=== PATIENT | male | born 1980 | race Caucasian/White ===

== ENCOUNTER 2020-11-21 00:05 | Inpatient (IN) ==
[2020-11-21] MEDS ORDERED: Naloxone 0.4 MG/ML INJ IVP PRN ×2 (03:24→14:21)
[2020-11-21] MEDS ORDERED: Artificial Tears SOLN 15 ML BOTTLE BOTH EYES PRN ×2 (03:27→14:21)
[2020-11-21] MEDS: Midazolam HCl 50 MG/100 ML IV.SOLN IVC SCH ×2 (03:30→19:10)
[2020-11-21] MEDS: FentaNYL (PF) 1,000 MCG/100 ML IV.SOLN IVC SCH ×3 (03:30→16:09)
[2020-11-21 03:49] LABS: ABG Base Excess -11 mEq/L (-2 to 3); ABG HCO3 20 mEq/L (21-27); ABG Oxygen Saturation 87 % (95-98); ABG PCO2 67 mmHg (35-45); ABG PH 7.08 pH Units (7.32-7.45); ABG PO2 75 mmHg (85-104); ABG TCO2 22 mEq/L (20-26); Blood Gas VT 450 cc
[2020-11-21] MEDS ORDERED: *HR* Dextrose 50 % in Water (Vial) 50 ML VIAL ONE (03:49)
[2020-11-21] MEDS ORDERED: *HR* Dextrose 50 % in Water (Vial) 50 ML VIAL IVP ONE (04:00)
[2020-11-21 04:33] LABS: Hematocrit 32.2 % (37.5-50.1); Mean Corpuscular Volume 85.6 fL (83.0-100.0); Nucleated Red Blood Cells 0.4 /100 WBC (0); Red Blood Count 3.76 M/mcL (4.19-5.50)
[2020-11-21 04:34] LABS: Hemoglobin 11.1 g/dL (12.9-16.9); Mean Corpuscular HGB Conc 34.5 g/dL (31.6-35.5); Mean Corpuscular Hemoglobin 29.5 pg (28.0-33.3); Platelet Count 117 K/mcL (140-400); Red Cell Distribution Width 13.7 % (11.5-14.5)
[2020-11-21 04:38] LABS: White Blood Count 44.8 K/mcL (4.3-11.1)
[2020-11-21 04:41] LABS: VBG Ionized Calcium 0.83 mmol/L (1.15-1.35)
[2020-11-21 04:51] LABS: Albumin 2.1 g/dL (3.5-5.7); Albumin/Globulin Ratio 0.7 (1.1-2.2); Bilirubin,Total 1.8 mg/dL (0.3-1.0); Calcium 6.6 mg/dL (8.6-10.3); Globulin 2.9 g/dL (2.4-3.5); Magnesium 2.1 mg/dL (1.6-2.6); Phosphorous 11.1 mg/dL (2.7-4.5); Potassium 4.3 mEq/L (3.5-5.1)
[2020-11-21 04:59] LABS: Lymphocytes # 2.7 K/mcL (0.6-4.6); Monocytes # 0.9 K/mcL (0.0-1.3); Neutrophils # 41.2 K/mcL (1.6-8.9)
[2020-11-21 05:00] LABS: Large Platelets Present (Not Present); Platelet Estimate Slight Decrease (Normal); Poikilocytosis 1+ (Not Present)
[2020-11-21 05:05] LABS: ABG Base Excess -7 mEq/L (-2 to 3); ABG HCO3 23 mEq/L (21-27); ABG Oxygen Saturation 85 % (95-98); ABG PCO2 69 mmHg (35-45); ABG PH 7.13 pH Units (7.32-7.45); ABG PO2 66 mmHg (85-104); ABG TCO2 25 mEq/L (20-26); Blood Gas Modality ASSIST CONTROL; Blood Gas VT 450 cc
[2020-11-21] MEDS ORDERED: Perflutren Lipid Microsphere 1.3 ML in 0.9 % Sodium Chloride 8.7 ML IVP PRN ×2 (05:38→14:21)
[2020-11-21] MEDS: 0.9 % Sodium Chloride 1,000 ML IVC SCH ×2 (05:44→12:32)
[2020-11-21] MEDS: Calcium Gluconate 1gm/50mL 1 GM/50 ML BAG IVPB SCH ×2 (05:45→06:14)
[2020-11-21 05:49] LABS: ABG Base Excess -7 mEq/L (-2 to 3); ABG HCO3 23 mEq/L (21-27); ABG Oxygen Saturation 83 % (95-98); ABG PCO2 67 mmHg (35-45); ABG PH 7.14 pH Units (7.32-7.45); ABG PO2 63 mmHg (85-104); ABG TCO2 25 mEq/L (20-26); Blood Gas VT 400 cc
[2020-11-21] MEDS ORDERED: Cisatracurium 200 MG in 0.9 % Sodium Chloride 180 ML IVC SCH (06:00)
[2020-11-21] MEDS ORDERED: *HR* Heparin 5,000 UNIT/ML VIAL SQ SCH (06:00)
[2020-11-21] MEDS: Artificial Tears SOLN 15 ML BOTTLE BOTH EYES SCH ×5 (06:01→21:40)
[2020-11-21] MEDS: Ipratropium/Albuterol Neb 3 ML IH SCH ×5 (07:54→23:13)
[2020-11-21 08:43] LABS: C-Reactive Protein > 300 mg/L (Less than 10); Creatine Kinase 302 Units/L (30-223)
[2020-11-21 08:43] LABS: Complement C3 85 mg/dL (87-200)
[2020-11-21 08:56] LABS: Creatinine,Urine 84 mg/dL; Sodium, Urine 24.1 mEq/L
[2020-11-21] MEDS: Norepinephrine 4 MG/254 ML IV.SOLN IVC SCH ×4 (08:57→21:54)
[2020-11-21] MEDS ORDERED: levoFLOXacin 750 MG/150 ML 750 MG/150 ML BAG IVPB SCH (09:00)
[2020-11-21] MEDS ORDERED: Pantoprazole 40 MG VIAL IVP SCH (09:00)
[2020-11-21] MEDS ORDERED: Chlorhexidine Rinse 15 ML MOUTHWASH MM SCH (09:00)
[2020-11-21] MEDS ORDERED: Micafungin 100 MG in 0.9 % Sodium Chloride Mini Bag 100 ML IVPB SCH (09:15)
[2020-11-21 09:43] LABS: Adenovirus Not Detected (Not Detect); Bordetella Pertussis Not Detected (Not Detect); Chlamydophila pneumoniae Not Detected (Not Detect); Coronavirus 229E Not Detected (Not Detect); Coronavirus HKU1 Not Detected (Not Detect); Coronavirus NL63 Not Detected (Not Detect); Coronavirus OC43 Not Detected (Not Detect); Human Metapneumovirus Not Detected (Not Detect); Human Rhinovirus/Enterovirus Not Detected (Not Detect); Influenza A Subtype 2009 H1 Not Detected (Not Detect); Influenza B Not Detected (Not Detect); Mycoplasma pneumoniae Not Detected (Not Detect); Parainfluenza Virus 1 Not Detected (Not Detect); Parainfluenza Virus 2 Not Detected (Not Detect); Parainfluenza Virus 3 Not Detected (Not Detect); Parainfluenza Virus 4 Not Detected (Not Detect); Respiratory Syncytial Virus Not Detected (Not Detect); SARS-CoV-2 Not Detected (Not Detect)
[2020-11-21] MEDS ORDERED: Piperacillin/Tazobactam 3.375 GM in 0.9 % Sodium Chloride Mini Bag 100 ML IVPB SCH (10:00)
[2020-11-21 10:09] LABS: Bilirubin,Urine Small (Negative); Blood,Urine Moderate (Negative); Clarity,Urine Turbid (Clear); Color,Urine Dark-Yellow (Yellow); Glucose,Urine (UA) Normal (Normal); Ketones,Urine Negative (Negative); Leukocyte Esterase,Urine Negative (Negative); Nitrite,Urine Negative (Negative); Protein,Urine 70 mg/dL (Neg-Trace); RBC,Urine 0-3 per hpf (0-3); Specific Gravity,Urine 1.019 (1.010-1.025); WBC,Urine 0-3 per hpf (0-3)
[2020-11-21] MEDS ORDERED: 0.9 % Sodium Chloride 1,000 ML ONE (10:10)
[2020-11-21 10:15] LABS: Creatinine,Urine 89 mg/dL; Microalbum/Creatinine Ratio,Ur 248 mcg/mg (Less than 30); Microalbumin,Urine 221 mg/L
[2020-11-21 10:28] LABS: Calcium 6.7 mg/dL (8.6-10.3); Potassium 4.8 mEq/L (3.5-5.1)
[2020-11-21] MEDS ORDERED: Dexamethasone 4 MG/ML VIAL ONE (10:28)
[2020-11-21] MEDS ORDERED: Ondansetron 4 MG/2 ML VIAL ONE (10:28)
[2020-11-21] MEDS ORDERED: Lidocaine -MPF 2% 2 ML VIAL ONE (10:28)
[2020-11-21] MEDS ORDERED: Lidocaine -MPF 4% 5 ML AMPUL ONE (10:28)
[2020-11-21] MEDS ORDERED: *HR* FentaNYL (PF) 100 MCG/2 ML VIAL ONE (10:28)
[2020-11-21] MEDS ORDERED: *HR* Rocuronium Bromide 50 MG/5 ML VIAL ONE (10:28)
[2020-11-21] MEDS ORDERED: *HR* Midazolam HCl 2 MG/2 ML VIAL ONE (10:28)
[2020-11-21] MEDS ORDERED: *HR* Propofol 200 MG/20 ML VIAL IVP ONE (10:29)
[2020-11-21] MEDS ORDERED: *HR* Heparin 5,000 UNIT/ML VIAL IVP PRN ×2 (10:34→14:21)
[2020-11-21] MEDS ORDERED: PrismaSATE BGK 4/2.5 5,000 ML CRRT SCH ×2 (10:45)
[2020-11-21] MEDS ORDERED: 0.9 % Sodium Chloride 1,000 ML PRIME SCH ×2 (10:45→14:21)
[2020-11-21 11:02] LABS: ABG Base Excess -5 mEq/L (-2 to 3); ABG HCO3 22 mEq/L (21-27); ABG Oxygen Saturation 97 % (95-98); ABG PCO2 51 mmHg (35-45); ABG PH 7.25 pH Units (7.32-7.45); ABG PO2 108 mmHg (85-104); ABG TCO2 24 mEq/L (20-26); Blood Gas Modality ASSIST CONTROL; Blood Gas VT 450 cc
[2020-11-21] MEDS ORDERED: *HR* Cisatracurium 10 MG/5 ML VIAL IV ONE (11:05)
[2020-11-21] MEDS ORDERED: *HR* Vasopressin 20 UNIT/ML VIAL ONE (11:05)
[2020-11-21] MEDS ORDERED: Lacri-Lube 3.5 GM TUBE ONE ×2 (11:39→12:34)
[2020-11-21 13:14] LABS: ABG Base Excess -6 mEq/L (-2 to 3); ABG Chloride 98 mEq/L (98-107); ABG Glucose 97 mg/dL (60-95); ABG HCO3 20 mEq/L (21-27); ABG Ionized Calcium 0.76 mmol/L (1.15-1.35); ABG Oxygen Saturation 98 % (95-98); ABG PCO2 39 mmHg (35-45); ABG PH 7.31 pH Units (7.32-7.45); ABG PO2 105 mmHg (85-104); ABG TCO2 21 mEq/L (20-26)
[2020-11-21] MEDS ORDERED: Calcium Chloride 2,000 MG in 0.9 % Sodium Chloride 100 ML IVPB ONE ×2 (14:00→14:21)
[2020-11-21 14:02] LABS: Amphetamine Screen,Urine Positive ng/mL (Cutoff=1000); Barbiturate Screen,Urine Negative ng/mL (Cutoff=200); Benzodiazepines Screen,Urine Positive ng/mL (Cutoff=200); Cannabinoid Screen,Urine Negative ng/mL (Cutoff = 50); Cocaine Screen,Urine Negative ng/mL (Cutoff= 300); Opiate Screen,Urine Positive ng/mL (Cutoff=300); Phencyclidine Screen,Urine Negative ng/mL (Cutoff=25)
[2020-11-21] MEDS ORDERED: Heparin 1,000 UNITS/500 mL 500 ML ONE (14:16)
[2020-11-21] MEDS ORDERED: Lidocaine/EPI 1:100k 1% 50 ML VIAL ONE (14:16)
[2020-11-21] MEDS ORDERED: FentaNYL (PF) 1,000 MCG/100 ML IV.SOLN IVC SCH (14:21)
[2020-11-21] MEDS ORDERED: 0.9 % Sodium Chloride 1,000 ML IVC SCH (14:21)
[2020-11-21] MEDS ORDERED: HEPARIN 1000 UNIT/500 ML ONE (14:40)
[2020-11-21 15:48] LABS: Eosinophils % 0.1 %; Hematocrit 25.4 % (37.5-50.1); Nucleated Red Blood Cells 0.4 /100 WBC (0)
[2020-11-21 15:50] LABS: Hemoglobin 8.7 g/dL (12.9-16.9); Immature Granulocytes % 7.5 % (0-4); Lymphocytes # 2.9 K/mcL (0.6-4.6); Lymphocytes % 6.3 %; Mean Corpuscular HGB Conc 34.3 g/dL (31.6-35.5); Mean Corpuscular Hemoglobin 29.5 pg (28.0-33.3); Mean Corpuscular Volume 86.1 fL (83.0-100.0); Monocytes # 1.1 K/mcL (0.0-1.3); Monocytes % 2.5 %; Neutrophils # 37.8 K/mcL (1.6-8.9); Platelet Count 104 K/mcL (140-400); Red Blood Count 2.95 M/mcL (4.19-5.50); Red Cell Distribution Width 14.2 % (11.5-14.5); Segmented Neutrophils % 83.6 %
[2020-11-21 15:51] LABS: Eosinophils # 0.1 K/mcL (0.0-0.6)
[2020-11-21 16:03] LABS: Calcium 7.5 mg/dL (8.6-10.3); Potassium 5.7 mEq/L (3.5-5.1)
[2020-11-21] MEDS: PrismaSATE BGK 4/2.5 5,000 ML CRRT SCH ×4 (16:44→20:44)
[2020-11-21] MEDS: Piperacillin/Tazobactam 3.375 GM in 0.9 % Sodium Chloride Mini Bag 100 ML IVPB SCH (17:04)
[2020-11-21 17:18] LABS: Hepatitis B Surface Antigen Nonreactive (Nonreactive)
[2020-11-21 17:48] LABS: HIV-1&2 Antibody & p24 Ag Nonreactive (Nonreactive)
[2020-11-21 17:49] LABS: Hepatitis B Core IgM Nonreactive (Nonreactive)
[2020-11-21 17:51] LABS: Hepatitis A Antibody IgM Nonreactive (Nonreactive)
[2020-11-21] MEDS ORDERED: DAPTOmycin 500 MG in 0.9 % Sodium Chloride 100 ML IVPB SCH (18:00)
[2020-11-21] MEDS ORDERED: Vancomycin 1,250 MG/262.5 ML IV.SOLN IVPB SCH (18:00)
[2020-11-21 19:06] LABS: Hepatitis C Virus Antibody Reactive (Nonreactive)
[2020-11-21 19:07] LABS: Calcium 6.4 mg/dL (8.6-10.3); Potassium 5.6 mEq/L (3.5-5.1)
[2020-11-21 19:22] LABS: Troponin I 0.2 ng/mL (< 0.04)
[2020-11-21] MEDS ORDERED: 0.9 % Sodium Chloride 250 ML ONE (19:38)
[2020-11-21] MEDS: Cisatracurium 200 MG in 0.9 % Sodium Chloride 180 ML IVC SCH (20:40)
[2020-11-21] MEDS: Chlorhexidine Rinse 15 ML MOUTHWASH MM SCH (20:53)
[2020-11-21] MEDS: *HR* Heparin 5,000 UNIT/ML VIAL SQ SCH (20:53)
[2020-11-21 21:26] LABS: White Blood Count 45.2 K/mcL (4.3-11.1)
[2020-11-21] MEDS ORDERED: 0.9 % Sodium Chloride 1,000 ML IV ONE (22:28)
[2020-11-22] MEDS: Artificial Tears SOLN 15 ML BOTTLE BOTH EYES SCH ×7 (00:29→23:17)
[2020-11-22] MEDS: Piperacillin/Tazobactam 3.375 GM in 0.9 % Sodium Chloride Mini Bag 100 ML IVPB SCH ×4 (00:29→23:20)
[2020-11-22] MEDS: PrismaSATE BGK 4/2.5 5,000 ML CRRT SCH ×12 (00:44→21:05)
[2020-11-22] MEDS: Norepinephrine 4 MG/254 ML IV.SOLN IVC SCH ×5 (01:23→19:00)
[2020-11-22] MEDS: FentaNYL (PF) 2,500 MCG/50 ML IV.SOLN IVC SCH ×2 (03:00→12:08)
[2020-11-22] MEDS ORDERED: *HR* Dextrose 50 % in Water (Vial) 50 ML VIAL ONE (03:47)
[2020-11-22] MEDS: Ipratropium/Albuterol Neb 3 ML IH SCH ×6 (03:49→23:46)
[2020-11-22 04:08] LABS: ABG Ionized Calcium 0.73 mmol/L (1.15-1.35)
[2020-11-22 04:15] LABS: Hematocrit 23.2 % (37.5-50.1); Hemoglobin 7.7 g/dL (12.9-16.9); Mean Corpuscular HGB Conc 33.2 g/dL (31.6-35.5); Mean Corpuscular Hemoglobin 29.1 pg (28.0-33.3); Mean Corpuscular Volume 87.5 fL (83.0-100.0); Mean Platelet Volume 11.4 fL (9.4-12.4); Nucleated Red Blood Cells 0.7 /100 WBC (0); Red Blood Count 2.65 M/mcL (4.19-5.50); Red Cell Distribution Width 14.6 % (11.5-14.5)
[2020-11-22 04:17] LABS: INR 2.3
[2020-11-22 04:20] LABS: Activated Partial Thrombo Time 36.1 Seconds (26.0-36.0)
[2020-11-22 04:34] LABS: Calcium 4.9 mg/dL (8.6-10.3); Uric Acid 6.8 mg/dL (2.3-7.6)
[2020-11-22 04:40] LABS: Platelet Count 68 K/mcL (140-400)
[2020-11-22 04:42] LABS: White Blood Count 33.6 K/mcL (4.3-11.1)
[2020-11-22 04:44] LABS: Anisocytosis 1+ (Not Present); Lymphocytes # 3.4 K/mcL (0.6-4.6); Neutrophils # 29.6 K/mcL (1.6-8.9)
[2020-11-22 04:45] LABS: Platelet Estimate Decreased (Normal); Reactive Lymphocytes Present (Not Present); Toxic Granulation Present (Not Present); Toxic Vacuolation Present (Not Present)
[2020-11-22 04:59] LABS: ABG Base Excess -14 mEq/L (-2 to 3); ABG HCO3 15 mEq/L (21-27); ABG Oxygen Saturation 89 % (95-98); ABG PCO2 42 mmHg (35-45); ABG PH 7.15 pH Units (7.32-7.45); ABG PO2 72 mmHg (85-104); ABG TCO2 16 mEq/L (20-26); Blood Gas VT 450 cc
[2020-11-22 05:04] LABS: Albumin 1.7 g/dL (3.5-5.7); Albumin/Globulin Ratio 0.7 (1.1-2.2); Bilirubin,Direct 2.3 mg/dL (0.0-0.2); Bilirubin,Indirect 0.6 mg/dL (0.0-1.0); Bilirubin,Total 2.9 mg/dL (0.3-1.0); Globulin 2.5 g/dL (2.4-3.5); Magnesium 2.4 mg/dL (1.6-2.6); Phosphorous 7.9 mg/dL (2.7-4.5); Total Protein 4.2 g/dL (6.4-8.9)
[2020-11-22] MEDS: *HR* Heparin 5,000 UNIT/ML VIAL SQ SCH ×3 (05:29→20:13)
[2020-11-22] MEDS ORDERED: Sodium Bicarbonate 150 MEQ in D5% in Water 1,000 ML IVC SCH ×2 (05:30)
[2020-11-22] MEDS ORDERED: *HR* Dextrose 50 % in Water (Vial) 50 ML VIAL IVP ONE (05:45)
[2020-11-22] MEDS ORDERED: Calcium Gluconate 1gm/50mL 1 GM/50 ML BAG IVPB SCH (06:00)
[2020-11-22] MEDS: Midazolam HCl 50 MG/100 ML IV.SOLN IVC SCH ×2 (06:00→17:01)
[2020-11-22] MEDS ORDERED: 0.9 % Sodium Chloride 1,000 ML IVC ONE (06:28)
[2020-11-22] MEDS: D5 IVPB SCH ×2 (06:44→17:30)
[2020-11-22] MEDS: CALCIUM CHLORIDE IVPB SCH ×2 (06:44→17:30)
[2020-11-22] MEDS: WATER IVPB SCH ×2 (06:44→17:30)
[2020-11-22] MEDS ORDERED: D10% in Water 500 ML ONE (06:59)
[2020-11-22] MEDS: D10% in Water 500 ML IVC SCH ×2 (07:00→17:17)
[2020-11-22] MEDS ORDERED: 0.9 % Sodium Chloride 500 ML ONE (07:38)
[2020-11-22] MEDS: Phenylephrine 10 MG in 0.9 % Sodium Chloride 250 ML IVC SCH ×2 (08:06→18:00)
[2020-11-22] MEDS: Chlorhexidine Rinse 15 ML MOUTHWASH MM SCH ×2 (08:07→20:20)
[2020-11-22] MEDS: Pantoprazole 40 MG VIAL IVP SCH (08:07)
[2020-11-22] MEDS ORDERED: levoFLOXacin 500 MG/100 ML 500 MG/100 ML BAG IVPB SCH (09:00)
[2020-11-22] MEDS ORDERED: Micafungin 100 MG in 0.9 % Sodium Chloride Mini Bag 100 ML IVPB SCH (09:00)
[2020-11-22] MEDS ORDERED: Vancomycin 1,500 MG/265 ML IV.SOLN IVPB ONE (11:00)
[2020-11-22 11:05] LABS: Acinetobacter baumannii by PCR Not Detected (Not Detect); Candida albicans by PCR Not Detected (Not Detect); Candida glabrata by PCR Not Detected (Not Detect); Candida krusei by PCR Not Detected (Not Detect); Candida parapsilosis by PCR Not Detected (Not Detect); Candida tropicalis by PCR Not Detected (Not Detect); Enterobacter cloacae Cmplx PCR Not Detected (Not Detect); Enterobacteriaceae by PCR Not Detected (Not Detect); Enterococcus by PCR Not Detected (Not Detect); Escherichia coli by PCR Not Detected (Not Detect); Klebsiella oxytoca by PCR Not Detected (Not Detect); Klebsiella pneumoniae by PCR Not Detected (Not Detect); Proteus by PCR Not Detected (Not Detect); Pseudomonas aeruginosa by PCR Not Detected (Not Detect); Serratia marcescens by PCR Not Detected (Not Detect); Staphylococcus aureus by PCR DETECTED (Not Detect); Streptococcus agalactiae(B)PCR Not Detected (Not Detect); Streptococcus by PCR Not Detected (Not Detect); Streptococcus pneumoniae PCR Not Detected (Not Detect); Streptococcus pyogenes (A) PCR Not Detected (Not Detect); mecA Methicillin-Resist Gene DETECTED (Not Detect)
[2020-11-22 11:36] LABS: ABG Base Excess -19 mEq/L (-2 to 3); ABG HCO3 12 mEq/L (21-27); ABG Oxygen Saturation 82 % (95-98); ABG PCO2 49 mmHg (35-45); ABG PH 6.98 pH Units (7.32-7.45); ABG PO2 70 mmHg (85-104); ABG TCO2 13 mEq/L (20-26); Blood Gas Modality ASSIST CONTROL; Blood Gas VT 450 cc
[2020-11-22] MEDS: Cisatracurium 200 MG in 0.9 % Sodium Chloride 180 ML IVC SCH (12:09)
[2020-11-22 12:20] LABS: VBG Ionized Calcium 0.92 mmol/L (1.15-1.35)
[2020-11-22] MEDS: Calcium Gluconate 1gm/50mL 1 GM/50 ML BAG IVPB PRN ×2 (13:11→21:18)
[2020-11-22] MEDS ORDERED: *HR* Atropine Sulfate 1 MG/10 ML SYRINGE IV ONE (13:27)
[2020-11-22] MEDS ORDERED: *HR* Dextrose 50 % in Water (Syg) 50 ML SYRINGE IVP ONE (13:27)
[2020-11-22] MEDS: Sodium Bicarbonate 150 MEQ in D5% in Water 1,000 ML IVC SCH ×2 (13:51→19:48)
[2020-11-22 15:37] LABS: INR 3.1; Prothrombin Time 34.4 Seconds (9.4-12.1)
[2020-11-22 15:40] LABS: Mean Platelet Volume 12.2 fL (9.4-12.4); Nucleated Red Blood Cells 1.9 /100 WBC (0)
[2020-11-22 15:41] LABS: Hematocrit 26.8 % (37.5-50.1); Hemoglobin 8.7 g/dL (12.9-16.9); Immature Platelets 13.6 % (1.1-6.1); Mean Corpuscular HGB Conc 32.5 g/dL (31.6-35.5); Mean Corpuscular Hemoglobin 29.1 pg (28.0-33.3); Mean Corpuscular Volume 89.6 fL (83.0-100.0); Red Blood Count 2.99 M/mcL (4.19-5.50); Red Cell Distribution Width 15.3 % (11.5-14.5)
[2020-11-22 15:42] LABS: Platelet Count 58 K/mcL (140-400)
[2020-11-22 15:46] LABS: White Blood Count 40.3 K/mcL (4.3-11.1)
[2020-11-22 15:50] LABS: Calcium 7.6 mg/dL (8.6-10.3); Potassium 5.9 mEq/L (3.5-5.1)
[2020-11-22 15:57] LABS: Anisocytosis 1+ (Not Present); Lymphocytes # 3.2 K/mcL (0.6-4.6); Monocytes # 3.2 K/mcL (0.0-1.3); Neutrophils # 31.4 K/mcL (1.6-8.9); Platelet Estimate Decreased (Normal); Poikilocytosis 1+ (Not Present)
[2020-11-22 16:21] LABS: VBG Ionized Calcium 0.99 mmol/L (1.15-1.35)
[2020-11-22 16:22] LABS: ABG Base Excess -13 mEq/L (-2 to 3); ABG HCO3 15 mEq/L (21-27); ABG Oxygen Saturation 99 % (95-98); ABG PCO2 40 mmHg (35-45); ABG PH 7.18 pH Units (7.32-7.45); ABG PO2 165 mmHg (85-104); ABG TCO2 16 mEq/L (20-26); Blood Gas Modality ASSIST CONTROL; Blood Gas VT 550 cc
[2020-11-22 20:37] LABS: VBG Ionized Calcium 1.02 mmol/L (1.15-1.35)
[2020-11-22] MEDS: Norepinephrine 8 MG in 0.9 % Sodium Chloride 250 ML IVC SCH (22:04)
[2020-11-22 22:25] LABS: ABG Base Excess -8 mEq/L (-2 to 3); ABG HCO3 18 mEq/L (21-27); ABG Oxygen Saturation 94 % (95-98); ABG PCO2 41 mmHg (35-45); ABG PH 7.27 pH Units (7.32-7.45); ABG PO2 80 mmHg (85-104); ABG TCO2 20 mEq/L (20-26); Blood Gas VT 550 cc
[2020-11-23] MEDS: PrismaSATE BGK 4/2.5 5,000 ML CRRT SCH ×12 (01:10→23:36)
[2020-11-23] MEDS: Sodium Bicarbonate 150 MEQ in D5% in Water 1,000 ML IVC SCH ×6 (01:23→23:20)
[2020-11-23] MEDS: Cisatracurium 200 MG in 0.9 % Sodium Chloride 180 ML IVC SCH ×2 (02:05→14:28)
[2020-11-23] MEDS: FentaNYL (PF) 2,500 MCG/50 ML IV.SOLN IVC SCH ×2 (02:08→15:41)
[2020-11-23] MEDS: Phenylephrine 10 MG in 0.9 % Sodium Chloride 250 ML IVC SCH (02:31)
[2020-11-23] MEDS: Midazolam HCl 50 MG/100 ML IV.SOLN IVC SCH ×2 (03:04→14:25)
[2020-11-23] MEDS: Norepinephrine 8 MG in 0.9 % Sodium Chloride 250 ML IVC SCH ×5 (03:04→22:04)
[2020-11-23 03:16] LABS: ABG Ionized Calcium 1.08 mmol/L (1.15-1.35)
[2020-11-23 03:16] LABS: Hemoglobin 8.8 g/dL (12.9-16.9)
[2020-11-23 03:18] LABS: Hematocrit 26.7 % (37.5-50.1); Immature Platelets 18.5 % (1.1-6.1); Mean Corpuscular Hemoglobin 28.9 pg (28.0-33.3); Mean Corpuscular Volume 87.5 fL (83.0-100.0); Mean Platelet Volume 12.9 fL (9.4-12.4); Nucleated Red Blood Cells 3.4 /100 WBC (0); Platelet Count 43 K/mcL (140-400); Red Blood Count 3.05 M/mcL (4.19-5.50); Red Cell Distribution Width 15.9 % (11.5-14.5)
[2020-11-23 03:21] LABS: White Blood Count 38.5 K/mcL (4.3-11.1)
[2020-11-23 03:28] LABS: INR 3.4; Prothrombin Time 37.9 Seconds (9.4-12.1)
[2020-11-23 03:36] LABS: Hypochromasia Present (Not Present); Lymphocytes # 3.1 K/mcL (0.6-4.6); Monocytes # 2.3 K/mcL (0.0-1.3); Platelet Estimate Decreased (Normal); Reactive Lymphocytes Present (Not Present)
[2020-11-23 03:37] LABS: Toxic Granulation Present (Not Present); Toxic Vacuolation Present (Not Present)
[2020-11-23] MEDS: WATER IVPB SCH ×3 (03:38→23:22)
[2020-11-23] MEDS: D5 IVPB SCH ×3 (03:38→23:22)
[2020-11-23] MEDS: Artificial Tears SOLN 15 ML BOTTLE BOTH EYES SCH ×6 (03:38→23:20)
[2020-11-23] MEDS: CALCIUM CHLORIDE IVPB SCH ×3 (03:38→23:22)
[2020-11-23 03:43] LABS: Alanine Aminotransferase 2017 Units/L (7-52); Albumin 1.5 g/dL (3.5-5.7); Albumin/Globulin Ratio 0.7 (1.1-2.2); Alkaline Phosphatase 426 Units/L (34-104); Aspartate Amino Transferase > 3000 Units/L (13-39); BUN/Creatinine Ratio 26 (6-26); Bilirubin,Direct 3.9 mg/dL (0.0-0.2); Bilirubin,Total 4.9 mg/dL (0.3-1.0); Blood Urea Nitrogen 44 mg/dL (6-20); Calcium 7.8 mg/dL (8.6-10.3); Carbon Dioxide 19 mEq/L (23-29); Chloride 98 mEq/L (98-107); Globulin 2.1 g/dL (2.4-3.5); Glucose 104 mg/dL (70-105); Magnesium 2.4 mg/dL (1.6-2.6); Osmolality,Calculated 289 (280-300); Potassium 5.6 mEq/L (3.5-5.1); Sodium 134 mEq/L (136-145); Total Protein 3.6 g/dL (6.4-8.9); eGFR For African Americans 54 (> 60); eGFR For Non-African Americans 45 (> 60)
[2020-11-23] MEDS: Ipratropium/Albuterol Neb 3 ML IH SCH ×6 (03:44→23:57)
[2020-11-23 04:20] LABS: VBG Ionized Calcium 1.19 mmol/L (1.15-1.35)
[2020-11-23 04:21] LABS: ABG Base Excess -11 mEq/L (-2 to 3); ABG HCO3 16 mEq/L (21-27); ABG Oxygen Saturation 89 % (95-98); ABG PCO2 43 mmHg (35-45); ABG PH 7.18 pH Units (7.32-7.45); ABG PO2 69 mmHg (85-104); ABG TCO2 18 mEq/L (20-26); Blood Gas VT 550 cc
[2020-11-23] MEDS: *HR* Heparin 5,000 UNIT/ML VIAL SQ SCH ×3 (04:43→19:31)
[2020-11-23] MEDS: D10% in Water 500 ML IVC SCH ×3 (05:01→23:57)
[2020-11-23] MEDS: Phenylephrine 50 MG in 0.9 % Sodium Chloride 250 ML IVC SCH ×2 (05:48→13:00)
[2020-11-23] MEDS ORDERED: Albumin 25% 12.5gm/50mL 12.5 GM/50 ML IV.SOLN IVPB ONE (06:14)
[2020-11-23] MEDS: Piperacillin/Tazobactam 3.375 GM in 0.9 % Sodium Chloride Mini Bag 100 ML IVPB SCH (08:19)
[2020-11-23] MEDS: Pantoprazole 40 MG VIAL IVP SCH (08:19)
[2020-11-23] MEDS: Chlorhexidine Rinse 15 ML MOUTHWASH MM SCH ×2 (08:19→19:36)
[2020-11-23] MEDS: Vasopressin 40 UNIT in D5% in Water 100 ML IVC SCH (09:38)
[2020-11-23 10:33] LABS: ABG Base Excess -17 mEq/L (-2 to 3); ABG HCO3 12 mEq/L (21-27); ABG Oxygen Saturation 95 % (95-98); ABG PCO2 39 mmHg (35-45); ABG PO2 99 mmHg (85-104); ABG TCO2 13 mEq/L (20-26); Blood Gas Modality ASSIST CONTROL; Blood Gas VT 550 cc
[2020-11-23 11:24] LABS: Red Cell Distribution Width 16.2 % (11.5-14.5)
[2020-11-23 11:25] LABS: Hematocrit 23.2 % (37.5-50.1); Hemoglobin 7.5 g/dL (12.9-16.9); Immature Platelets 22.6 % (1.1-6.1); Mean Corpuscular HGB Conc 32.3 g/dL (31.6-35.5); Mean Corpuscular Hemoglobin 29.3 pg (28.0-33.3); Mean Corpuscular Volume 90.6 fL (83.0-100.0); Mean Platelet Volume 12.5 fL (9.4-12.4); Nucleated Red Blood Cells 4.7 /100 WBC (0); Red Blood Count 2.56 M/mcL (4.19-5.50)
[2020-11-23 11:28] LABS: ANA IgG by ELISA NONE DETECTED (None Detected)
[2020-11-23 11:30] LABS: Platelet Count 31 K/mcL (140-400)
[2020-11-23 11:36] LABS: White Blood Count 41.5 K/mcL (4.3-11.1)
[2020-11-23 12:19] LABS: Lymphocytes # 4.6 K/mcL (0.6-4.6); Monocytes # 2.5 K/mcL (0.0-1.3); Neutrophils # 31.5 K/mcL (1.6-8.9); Platelet Estimate Marked Decrease (Normal)
[2020-11-23 12:20] LABS: Large Platelets Present (Not Present)
[2020-11-23 12:21] LABS: Anisocytosis 1+ (Not Present); Poikilocytosis 1+ (Not Present)
[2020-11-23] MEDS ORDERED: Vancomycin 2,000 MG/520 ML IV.SOLN IVPB ONE (12:38)
[2020-11-23] MEDS ORDERED: Dextrose Gel 15 GM/37.5 ML TUBE PO PRN ×2 (13:11)
[2020-11-23] MEDS ORDERED: *HR* Dextrose 50 % in Water (Vial) 50 ML VIAL IVP PRN (13:11)
[2020-11-23] MEDS ORDERED: D5% in Water 1,000 ML IVC PRN (13:11)
[2020-11-23] MEDS: Insulin LISPRO 300 UNITS/3 ML VIAL SUBQ SCH ×2 (15:58→19:51)
[2020-11-23] MEDS: Meropenem 1,000 MG in Water for inj. (sterile) 20 ML IVP SCH ×2 (16:24→23:20)
[2020-11-23] MEDS: Hydrocortisone Sodium Succ 100 MG/2 ML VIAL IVP SCH ×2 (16:26→23:20)
[2020-11-23] MEDS ORDERED: Amiodarone Premix 150 MG/100 ML BAG IVPB ONE ×2 (16:51→16:53)
[2020-11-23] MEDS ORDERED: Clinimix 5%-20% SOLUTION 2,000 ML with MVI, adult with vitamin K 10 ML, Sodium Chlori... IVC SCH (17:00)
[2020-11-23] MEDS ORDERED: Amiodarone Premix 360 MG/200 ML BAG IVC ONE (17:03)
[2020-11-23 18:28] LABS: ABG Base Excess -21 mEq/L (-2 to 3); ABG HCO3 9 mEq/L (21-27); ABG Oxygen Saturation 98 % (95-98); ABG PCO2 37 mmHg (35-45); ABG PO2 157 mmHg (85-104); ABG TCO2 10 mEq/L (20-26); Blood Gas Modality ASSIST CONTROL; Blood Gas VT 550 cc
[2020-11-23] MEDS ORDERED: Sodium Bicarbonate 150 MEQ in D5% in Water 1,000 ML IVC SCH (18:48)
[2020-11-23 20:29] LABS: ABG Ionized Calcium 1.08 mmol/L (1.15-1.35)
[2020-11-23] MEDS ORDERED: Amiodarone Premix 360 MG/200 ML BAG IVC SCH (22:51)
[2020-11-23] MEDS ORDERED: Vancomycin 1,500 MG/265 ML IV.SOLN IVPB SCH (23:00)
[2020-11-23] MEDS ORDERED: *HR* Atropine Sulfate 1 MG/10 ML SYRINGE ONE (23:01)
[2020-11-23] MEDS ORDERED: *HR* Atropine Sulfate 1 MG/10 ML SYRINGE IVP STA ×2 (23:10→23:12)
[2020-11-24] MEDS: Sodium Bicarbonate 150 MEQ in D5% in Water 1,000 ML IVC SCH ×3 (00:12→08:59)
[2020-11-24] MEDS: Midazolam HCl 50 MG/100 ML IV.SOLN IVC SCH ×2 (00:12→09:00)
[2020-11-24] MEDS ORDERED: *HR* Atropine Sulfate 1 MG/10 ML SYRINGE ONE (00:19)
[2020-11-24] MEDS: Artificial Tears SOLN 15 ML BOTTLE BOTH EYES SCH ×2 (03:05→07:41)
[2020-11-24 03:09] LABS: Hematocrit 22.2 % (37.5-50.1); Hemoglobin 6.6 g/dL (12.9-16.9); Immature Platelets 17.4 % (1.1-6.1); Mean Corpuscular HGB Conc 29.7 g/dL (31.6-35.5); Mean Corpuscular Hemoglobin 29.3 pg (28.0-33.3); Mean Corpuscular Volume 98.7 fL (83.0-100.0); Mean Platelet Volume 13.2 fL (9.4-12.4); Nucleated Red Blood Cells 3.8 /100 WBC (0); Red Blood Count 2.25 M/mcL (4.19-5.50); Red Cell Distribution Width 17.3 % (11.5-14.5)
[2020-11-24 03:23] LABS: Beta Globulin (PEP) 0.59 g/dL (0.48-1.10)
[2020-11-24 03:24] LABS: White Blood Count 44.2 K/mcL (4.3-11.1)
[2020-11-24 03:25] LABS: Platelet Count 18 K/mcL (140-400)
[2020-11-24 03:28] LABS: ABG Base Excess -22 mEq/L (-2 to 3); ABG HCO3 8 mEq/L (21-27); ABG Oxygen Saturation 99 % (95-98); ABG PCO2 33 mmHg (35-45); ABG PH 6.99 pH Units (7.32-7.45); ABG PO2 182 mmHg (85-104); ABG TCO2 9 mEq/L (20-26)
[2020-11-24 03:31] LABS: BUN/Creatinine Ratio 19 (6-26); Blood Urea Nitrogen 25 mg/dL (6-20); Calcium 8.6 mg/dL (8.6-10.3); Carbon Dioxide 10 mEq/L (23-29); Chloride 94 mEq/L (98-107); Glucose 318 mg/dL (70-105); INR 8.7; Magnesium 2.5 mg/dL (1.6-2.6); Osmolality,Calculated 293 (280-300); Phosphorous 8.8 mg/dL (2.7-4.5); Prothrombin Time 95.2 Seconds (9.4-12.1); Sodium 133 mEq/L (136-145); Triglycerides 50 mg/dL (< 150); eGFR For African Americans > 60 (> 60); eGFR For Non-African Americans 59 (> 60)
[2020-11-24 03:39] LABS: Anisocytosis 1+ (Not Present); Lymphocytes # 0.9 K/mcL (0.6-4.6); Monocytes # 3.5 K/mcL (0.0-1.3); Neutrophils # 34.5 K/mcL (1.6-8.9); Platelet Estimate Marked Decrease (Normal); Poikilocytosis 1+ (Not Present); Reactive Lymphocytes Present (Not Present); Toxic Granulation Present (Not Present)
[2020-11-24] MEDS: PrismaSATE BGK 4/2.5 5,000 ML CRRT SCH ×4 (03:54→09:01)
[2020-11-24] MEDS: Ipratropium/Albuterol Neb 3 ML IH SCH ×3 (03:55→10:33)
[2020-11-24] MEDS: Norepinephrine 8 MG in 0.9 % Sodium Chloride 250 ML IVC SCH (03:59)
[2020-11-24] MEDS: *HR* Heparin 5,000 UNIT/ML VIAL SQ SCH (04:01)
[2020-11-24 04:24] LABS: ABG Base Excess -23 mEq/L (-2 to 3); ABG HCO3 8 mEq/L (21-27); ABG Oxygen Saturation 100 % (95-98); ABG PCO2 43 mmHg (35-45); ABG PH 6.89 pH Units (7.32-7.45); ABG PO2 275 mmHg (85-104); ABG TCO2 10 mEq/L (20-26); Blood Gas VT 550 cc
[2020-11-24] MEDS: Insulin LISPRO 300 UNITS/3 ML VIAL SUBQ SCH ×3 (04:52→09:01)
[2020-11-24] MEDS: FentaNYL (PF) 2,500 MCG/50 ML IV.SOLN IVC SCH (05:52)
[2020-11-24] MEDS: Vasopressin 40 UNIT in D5% in Water 100 ML IVC SCH (06:05)
[2020-11-24] MEDS ORDERED: 0.9 % Sodium Chloride 250 ML ONE (07:31)
[2020-11-24] MEDS: Pantoprazole 40 MG VIAL IVP SCH (07:41)
[2020-11-24] MEDS: Hydrocortisone Sodium Succ 100 MG/2 ML VIAL IVP SCH (07:41)
[2020-11-24] MEDS: Chlorhexidine Rinse 15 ML MOUTHWASH MM SCH (07:41)
[2020-11-24] MEDS: Meropenem 1,000 MG in Water for inj. (sterile) 20 ML IVP SCH (07:42)
[2020-11-24 09:14] VITALS: BP 154/54
[2020-11-24 10:05] LABS: IFE Reflexed NOT DONE
[2020-11-24] MEDS ORDERED: Artificial Tears SOLN 15 ML BOTTLE BOTH EYES PRN (10:22)
[2020-11-24] MEDS ORDERED: Chlorhexidine Rinse 15 ML MOUTHWASH MM SCH (10:30)
[2020-11-24] MEDS ORDERED: Artificial Tears SOLN 15 ML BOTTLE BOTH EYES SCH (12:00)
== END 2020-11-24 13:28 | disposition expired | DRG 710 ==
LOC: ICNU → OBSVTOIN 03:16
PROVIDERS: ADMIT Student in an Organized Health Care Education/Training Program; ATTEND Student in an Organized Health Care Education/Training Program